=== PATIENT | female | born 1995 ===

== ENCOUNTER 2021-01-29 22:29 | Emergency (ER) | payer MEDICAID ==
[~2021-01-29] VITALS: Ht 162.6 cm; Wt 106.9 kg
[2021-01-29 22:35] VITALS: BP 132/76
--- NOTE | 2021-01-29 23:26 | NUR ---
COVID SWAB COMPLETED BY CASE [facility] IN TRIAGE. PT. TO BE D/C FROM TRIAGE AREA.
== END 2021-01-30 01:34 | disposition left against medical advice (07) ==
LOC: ED 23:59
DX: J06.9 Acute upper respiratory infection, unspecified (principal); Z20.822 Contact with and (suspected) exposure to COVID-19; R51.9 Headache, unspecified; N39.0 Urinary tract infection, site not specified
CPT/HCPCS: 99283; U0003; U0005